=== PATIENT | female | born 2000 | race Hispanic/Latino ===

== ENCOUNTER → 2024-06-18 | Day surgery (SDC) | payer BC ==
[~2024-06-18] MED LIST: BENEFIBER144 GM; BLISOVI FE 1-21 EACH PO; FENTANYL CITRATE/PF 100MCG/2 ML INJ ONE; GLYCOPYRROLATE INJ 0.2 MG/ML VIAL ONE; LIDOCAINE HCL 2% LOCAL INJ 5 ML SDV VIAL INJ ONE; METOCLOPRAMIDE HCL 10 MG/2ML VIAL ONE; PRILOSEC OTC20 MG PO; PROPOFOL IV EMULSION 10 MG/ML 20 ML VIAL ONE
[2024-06-18] MEDS: LACTATED RINGER'S 1,000 ML ONE (09:27)
== END | disposition home or self-care (01) ==
LOC: OR 05:00
PROVIDERS: ATTEND Internal Medicine Gastroenterology
DX: K29.50 Unspecified chronic gastritis without bleeding (principal); K21.00 Gastro-esophageal reflux disease with esophagitis, without bleeding; K59.09 Other constipation; Z71.3 Dietary counseling and surveillance; F41.9 Anxiety disorder, unspecified; Z68.35 Body mass index [BMI] 35.0-35.9, adult
CPT/HCPCS: 43239; 81025; J2003; J2470; J2704; J2765; J3010; J7121